=== PATIENT | female | born 1955 | race Caucasian/White ===

== ENCOUNTER 2017-08-31 05:03 | Inpatient (IN) | payer OTHER ==
[~2017-08-31] VITALS: Ht 154.9 cm; Wt 72.9 kg
[~2017-08-31 05:03] MED LIST: SYNT25TA
[2017-08-31 05:08] VITALS: BP 132/75; PULSE 77; RESP 16; TEMP 97.9; O2SAT 97
[2017-08-31 05:19] VITALS: BP_SYST 130; BP_SYST 132; BP_DIAS 72; BP_DIAS 75; RESP 16
[2017-08-31] MEDS ORDERED: LIPI10TA PO (05:22)
[2017-08-31] MEDS ORDERED: SYNT25TA PO (05:22)
[2017-08-31] MEDS ORDERED: ASPI-183 PO (05:26)
[2017-08-31] MEDS ORDERED: SODIUM CHLOR 0.9% 1000 ML INJ 1,000 ML IV SCH (05:30)
[2017-08-31] MEDS ORDERED: SODIUM CHLORID 0.9% 500 ML INJ 500 ML IV ONE (05:30)
[2017-08-31] MEDS ORDERED: ONDANSETRON HCL 4 MG/2 ML VIAL IVP ONE (05:30)
[2017-08-31] MEDS ORDERED: SODIUM CHLORIDE 0.9% FLUSH 10 ML FLUSH IVF PRN (05:30)
[2017-08-31] MEDS ORDERED: PANTOPRAZOLE INJ 80 MG in SODIUM CHLORIDE 0.9% INJ 35 ML IV ONE (05:30)
--- NOTE | 2017-08-31 05:38 | PD ---
HPI Chief Complaint: GI Complaint Time Seen by Provider: 05:30 Travel History International Travel<30 days: No Contact w/Intl Traveler<30days: No Traveled to known affect area: No History of Present Illness HPI 61-year-old female presents to the emergency department by EMS transport for near syncope. Patient states that 7 PM last evening she was lightheaded and felt like she might faint went home and went to bed and awakened around 5 this morning to go to the bathroom and was very lightheaded and noticed dark stool 2. Patient has had upper GI bleed secondary to peptic ulcer disease in the past. Patient has had upper endoscopy and colonoscopy in the past. Patient is followed by Dr. Littlejohn. Patient denies chest pain shortness of breath abdominal pain pain. Patient states she has chronic anemia and has had hysterectomy in the past. Patient denies other concerns or complaints. Patient had no injury or fall. Patient does take a daily aspirin but takes no other blood thinning agents. PFSH Past Medical History Narrative Medical Hypertension, anemia, dyslipidemia, GI bleed, hysterectomy, upper endoscopy colonoscopy; no tobacco use; nursing notes reviewed Anemia: Yes Blood Disorders: No Cancer: No Cardiovascular Problems: No Chemotherapy: No Diminished Hearing: No Endocrine: Yes Hypertension: Yes Immune Disorder: No Musculoskeletal: No Neurologic: No Psychiatric: No Reproductive: No Respiratory: No Radiation Therapy: No Thyroid Disease: Yes Past Surgical History Genitourinary Surgery: Yes (BLADDER LIFT 2003) Gynecologic Surgery: Yes (HYST 2000) Hysterectomy: Yes Other Surgery: Yes Social History Alcohol Use: No Tobacco Use: No Substance Use: No Allergies-Medications (Allergen,Severity, Reaction): Coded Allergies: No Known Allergies (Verified Adverse Reaction, Unknown, 08/31/17) Reported Meds & Prescriptions Reported Meds & Active Scripts Active Reported Aspirin 325 Mg Tab 325 Mg PO Lipitor (Atorvastatin Calcium) 10 Mg Tab 10 Mg PO HS Synthroid (Levothyroxine Sodium) 25 Mcg Tab 25 Mcg PO DAILY Review of Systems Except as stated in HPI: all other systems reviewed are Neg Physical Exam Narrative GENERAL: Well-developed well-nourished elderly female in no acute distress or respiratory SKIN: Warm and dry. HEAD: Normocephalic. EYES: No scleral icterus. No injection or drainage. NECK: Supple, trachea midline. No JVD or lymphadenopathy. CARDIOVASCULAR: Regular rate and rhythm without murmurs, gallops, or rubs. RESPIRATORY: Breath sounds equal bilaterally. No accessory muscle use. GASTROINTESTINAL: Abdomen soft, non-tender, nondistended. Rectal exam: Fissure no prolapsed hemorrhoids no mass in the rectal vault; dark maroon blood on exam glove MUSCULOSKELETAL: No cyanosis, or edema. BACK: Nontender without obvious deformity. No CVA tenderness. Data Data Last Documented VS Vital Signs Date Time Temp Pulse Resp B/P (MAP) Pulse Ox O2 Delivery O2 Flow Rate FiO2 08/31/17 05:19 70 16 132/75 (94) 69 16 130/72 (91) 08/31/17 05:08 97.9 97 Orders Orders Bedside Glucose JOE.CSUGAR (08/31/17 05:20) Complete Blood Count With Diff (08/31/17 05:20) Basic Metabolic Panel (Bmp) (08/31/17 05:20) Prothrombin Time / Inr (Pt) (08/31/17 05:20) Act Partial Throm Time (Ptt) (08/31/17 05:20) Type And Screen (08/31/17 05:20) Electrocardiogram (08/31/17 ) Iv Access Insert/Monitor (08/31/17 05:20) Ecg Monitoring (08/31/17 05:20) Orthostatic Vital Signs (08/31/17 05:20) Oximetry (08/31/17 05:30) Ondansetron Inj (Zofran Inj) (08/31/17 05:30) Sodium Chlor 0.9% 1000 Ml Inj (Ns 1000 M (08/31/17 05:30) Sodium Chloride 0.9% Flush (Ns Flush) (08/31/17 05:30) Sodium Chloride 0.9... W/Pantoprazole In (08/31/17 05:30) Sodium Chloride 0.9... W/Pantoprazole In (08/31/17 05:30) Sodium Chlorid 0.9% 500 Ml Inj (Ns 500 M (08/31/17 05:30) MDM Medical Decision Making Medical Screen Exam Complete: Yes Emergency Medical Condition: Yes Medical Record Reviewed: Yes Interpretation(s) EKG normal sinus rhythm rate 75 nonspecific T-wave changes no acute ST elevation or injury pattern changes noted Differential Diagnosis Upper GI bleed, peptic ulcer disease, lower GI bleed, diverticulosis, colitis, anemia Narrative Course IV access obtained specimens collected and sent for resulting type and screen obtained orthostatics patient became symptomatic therefore discontinued patient will be started on Protonix bolus with Protonix infusion Physician Communication Physician Communication admit to [facility] service Diagnosis Primary Impression: Upper GI bleed Admitting Information Admitting Physician Requests: Admit Chelsy Beckett MD Aug 31, 2017 05:38
[2017-08-31 05:42] LABS: AUTOMATED NEUTROPHIL # 9.7 TH/MM3 (1.8-7.7); BASOPHIL # 0.3 TH/MM3 (0-0.2); BASOPHIL % 2.5 % (0.0-2.0); EOSINOPHIL # 0.1 TH/MM3 (0-0.4); EOSINOPHIL % 1.2 % (0.0-4.0); HEMATOCRIT 30.9 % (35.0-46.0); HEMOGLOBIN 10.7 GM/DL (11.6-15.3); LYMPH % 13.1 % (9.0-44.0); LYMPHOCYTE # 1.6 TH/MM3 (1.0-4.8); MEAN CELL VOLUME 89.1 FL (80.0-100.0); MEAN CORPUSCULAR HEMOGLOBIN 30.8 PG (27.0-34.0); MEAN CORPUSCULAR HGB CONC 34.6 % (32.0-36.0); MEAN PLATELET VOLUME 10.2 FL (7.0-11.0); MONO % 4.3 % (0.0-8.0); MONOCYTE # 0.5 TH/MM3 (0-0.9); NEUT % 78.9 % (16.0-70.0); PLATELET COUNT 217 TH/MM3 (150-450); RED BLOOD COUNT 3.46 MIL/MM3 (4.00-5.30); RED CELL DISTRIBUTION WIDTH 12.9 % (11.6-17.2); WHITE BLOOD COUNT 12.2 TH/MM3 (4.0-11.0)
[2017-08-31 05:50] LABS: BICARBONATE 24.4 MEQ/L (21.0-32.0); CALCIUM 8.3 MG/DL (8.5-10.1); CREATININE 0.66 MG/DL (0.50-1.00)
[2017-08-31] MEDS ORDERED: ONDANSETRON HCL 4 MG/2 ML VIAL IV PUSH PRN (06:00)
[2017-08-31] MEDS ORDERED: SODIUM CHLORIDE 0.9% FLUSH 10 ML FLUSH IV FLUSH PRN (06:00)
[2017-08-31] MEDS: SODIUM CHLOR 0.9% 1000 ML INJ 1,000 ML IV SCH ×2 (06:06→13:49)
[2017-08-31] MEDS: PANTOPRAZOLE INJ 80 MG in SODIUM CHLORIDE 0.9% INJ 100 ML IV SCH ×2 (06:11→13:49)
[2017-08-31] MEDS: SODIUM CHLORIDE 0.9% FLUSH 10 ML FLUSH IV FLUSH SCH ×2 (07:40→21:00)
[2017-08-31 08:00] VITALS: BP 106/59; PULSE 68; RESP 17; TEMP 96.5; O2SAT 96
[2017-08-31] MEDS ORDERED: SODIUM CHLORID 0.9% 500 ML INJ 500 ML IV SCH (08:30)
--- NOTE | 2017-08-31 08:56 | HHI.HP ---
[facility] Jorgito Farr M.D. Admission Diagnosis upper gi bleed Diagnoses: (1) Hypertension (2) Hyperlipidemia (3) Hypothyroidism (4) Hypotension (5) Acute blood loss anemia (6) Upper GI bleed Chief Complaint: Lightheadedness Travel History International Travel<30 Days: No Contact w/Intl Traveler <30 Da: No Traveled to Known Affected Are: No History of Present Illness The patient is a 61-year-old female who states that she was in her normal state of health until yesterday evening when she began to feel lightheaded and dizzy. She felt that she was going to pass out. She denies syncope/loss of consciousness. She had 2 very dark stools overnight. She has history of GI bleed secondary to ulcer about 8 years ago. She takes a daily aspirin, but no other NSAIDs. Denies nausea or vomiting. Review of Systems Constitutional: COMPLAINS OF: Dizziness, DENIES: Fever, Chills, Night Sweats Eyes: DENIES: Blurred vision, Vision loss Ears, nose, mouth, throat: DENIES: Hearing loss Respiratory: DENIES: Cough, Wheezing, Sputum production, Shortness of breath Cardiovascular: DENIES: Chest pain, Palpitations, Syncope, Dyspnea on Exertion , Lower Extremity Edema Gastrointestinal: COMPLAINS OF: Black stools, DENIES: Abdominal pain, Constipation, Diarrhea, Nausea, Vomiting Genitourinary: DENIES: Urinary frequency, Urinary incontinence, Urgency, Hematuria, Dysuria, Nocturia Musculoskeletal: DENIES: Joint pain, Muscle aches Integumentary: DENIES: Pruritus, Rash Hematologic/lymphatic: DENIES: Bruising Neurologic: DENIES: Headache Past Family Social History Past Medical History Hypertension Hyperlipidemia Hypothyroidism History of GI bleed secondary to ulcer Past Surgical History Hysterectomy Bladder lift Reported Medications Aspirin 325 Mg Tab 325 Mg PO Lipitor (Atorvastatin Calcium) 10 Mg Tab 10 Mg PO HS Synthroid (Levothyroxine Sodium) 25 Mcg Tab 25 Mcg PO DAILY Lisinopril 5 mg daily Allergies: Coded Allergies: No Known Allergies (Verified Allergy, Unknown, 08/31/17) Family History Diabetes Social History Denies alcohol, tobacco, or illicit drug use. Physical Exam Vital Signs Vital Signs Date Time Temp Pulse Resp B/P (MAP) Pulse Ox O2 Delivery O2 Flow Rate FiO2 08/31/17 06:29 08/31/17 05:19 70 16 132/75 (94) 69 16 130/72 (91) 08/31/17 05:16 16 08/31/17 05:08 97.9 77 16 132/75 (94) 97 Physical Exam GENERAL: Well-nourished, well-developed female in no acute distress. HEENT: Normocephalic, atraumatic. Pupils equal, round and reactive. Extraocular movements intact. No scleral icterus. No injection or drainage. Oropharynx is clear. Mucous membranes are moist. CARDIOVASCULAR: Regular rate and rhythm without murmurs, gallops, or rubs. RESPIRATORY: Clear to auscultation. No wheezes, rales, or rhonchi. Breathing is non-labored. GASTROINTESTINAL: Abdomen soft, non-tender, nondistended. EXTREMITIES: No lower extremity edema. No calf tenderness. PSYCH: Alert and oriented x 3. Laboratory Laboratory Tests Test 08/31/17 05:20 White Blood Count 12.2 Red Blood Count 3.46 Hemoglobin 10.7 Hematocrit 30.9 Mean Corpuscular Volume 89.1 Mean Corpuscular Hemoglobin 30.8 Mean Corpuscular Hemoglobin Concent 34.6 Red Cell Distribution Width 12.9 Platelet Count 217 Mean Platelet Volume 10.2 Neutrophils (%) (Auto) 78.9 Lymphocytes (%) (Auto) 13.1 Monocytes (%) (Auto) 4.3 Eosinophils (%) (Auto) 1.2 Basophils (%) (Auto) 2.5 Neutrophils # (Auto) 9.7 Lymphocytes # (Auto) 1.6 Monocytes # (Auto) 0.5 Eosinophils # (Auto) 0.1 Basophils # (Auto) 0.3 CBC Comment DIFF FINAL Differential Comment Blood Urea Nitrogen 32 Creatinine 0.66 Random Glucose 152 Calcium Level 8.3 Sodium Level 139 Potassium Level 4.0 Chloride Level 108 Carbon Dioxide Level 24.4 Anion Gap 7 Estimat Glomerular Filtration Rate 91 Result Diagram: 08/31/1751908/31/1720 Caprini VTE Risk Assessment Caprini VTE Risk Assessment: No/Low Risk (score <= 1) VTE Pharm Contraindication: Active bleeding Caprini Risk Assessment Model Point Value = 1 Point Value = 2 Point Value = 3 Point Value = 5 Age 41-60 Minor surgery BMI > 25 kg/m2 Swollen legs Varicose veins or History of unexplained or recurrent spontaneous Oral contraceptives or hormone replacement Sepsis (< 1 month) Serious lung disease, including pneumonia (< 1 month) Abnormal pulmonary function Acute myocardial infarction Congestive heart failure (< 1 month) History of inflammatory bowel disease Medical patient at bed rest Age 61-74 Arthroscopic surgery Major open surgery (> 45 min) Laparoscopic surgery (> 45 min) Malignancy Confined to bed (> 72 hours) Immobilizing plaster cast Central venous access Age >= 75 History of VTE Family history of VTE Factor V Leiden Prothrombin [id number] Lupus anticoagulant Anticardiolipin antibodies Elevated serum homocysteine Heparin-induced thrombocytopenia Other congenital or acquired thrombophilia Stroke (< 1 month) Elective arthroplasty Hip, pelvis, or leg fracture Acute spinal cord injury (< 1 month) Prophylaxis Regimen Total Risk Factor Score Risk Level Prophylaxis Regimen 0-1 Low Early ambulation 2 Moderate Order ONE of the following: *Sequential Compression Device (SCD) *Heparin 5000 units SQ BID 3-4 Higher Order ONE of the following medications: *Heparin 5000 units SQ TID *Enoxaparin/Lovenox 40 mg SQ daily (WT < 150 kg, CrCl > 30 mL/min) *Enoxaparin/Lovenox 30 mg SQ daily (WT < 150 kg, CrCl > 10-29 mL/min) *Enoxaparin/Lovenox 30 mg SQ BID (WT < 150 kg, CrCl > 30 mL/min) AND/OR *Sequential Compression Device (SCD) 5 or more Highest Order ONE of the following medications: *Heparin 5000 units SQ TID (Preferred with Epidurals) *Enoxaparin/Lovenox 40 mg SQ daily (WT < 150 kg, CrCl > 30 mL/min) *Enoxaparin/Lovenox 30 mg SQ daily (WT < 150 kg, CrCl > 10-29 mL/min) *Enoxaparin/Lovenox 30 mg SQ BID (WT < 150 kg, CrCl > 30 mL/min) AND *Sequential Compression Device (SCD) Assessment and Plan Assessment and Plan 1. Acute upper GI bleed: Monitor H&H closely. Transfuse if necessary. Patient becomes lightheaded whenever she tries to stand up. Fluid bolus given this morning. Appreciate gastroenterology recommendations. Discussed with Dr. Oscar. Planning for endoscopy this afternoon. Aspirin on hold. 2. Hypotension: Patient has history of hypertension. Lisinopril on hold secondary to low blood pressure. Fluid bolus given. 3. Hyperlipidemia: Statin on hold. 4. Hypothyroidism: Continue Synthroid. 5. DVT prophylaxis: SCDs, HARINDER becker. Avoid chemical prophylaxis secondary to active GI bleed. Enrique Nelson MD Aug 31, 2017 08:56
[2017-08-31] MEDS: LEVOTHYROXINE SODIUM 25 MCG TAB PO SCH (09:07)
--- NOTE | 2017-08-31 09:40 | MB ---
cc: MICAELA FUENTES DONATO R. M.D. PASRICHA, SUNIL P. M.D. DATE OF CONSULTATION: 08/31/2017 DATE OF 1955 REASON FOR GI CONSULTATION Melena and anemia. HISTORY OF PRESENT ILLNESS The patient is a pleasant 61-year-old white female who apparently has had an ulcer in the past. At one point she was H. Pylori positive and she was treated. She was seen last in our office in [address] Millan did upper endoscopy on her and found erosive gastritis and duodenitis and colonoscopy done in 2013 also showed diverticulosis. The patient does take aspirin daily but no NSAIDs and yesterday she felt lightheaded and dizzy and had black stools, and she came to the emergency room. Since being in the hospital she has not had anymore black stools but this morning she got up and she very lightheaded. She denies any nausea, vomiting, heart issues. No dysphagia. No aphasia or early satiety. No abdominal pain. No hematochezia or bright red blood per rectum. She does have a history of anemia. PAST MEDICAL HISTORY Significant for: 1. Peptic ulcer. 2. Gastric erosion. 3. Duodenitis. 4. Colonic diverticulosis. 5. Hypertension. 6. Anemia. 7. Dyslipidemia. 8. She also has some form of thyroid disease. PAST SURGICAL HISTORY 1. Bladder lift. 2. Hysterectomy. 3. Upper endoscopy, colonoscopy. ALLERGIES She denies any allergies to me. FAMILY HISTORY Family history of colon polyps. SOCIAL HISTORY Does not smoke or drink. MEDICATION Outpatient: 1. Aspirin. 2. Lipitor. 3. Synthroid. Inpatient: She has been getting she is getting pantoprazole drip and Zofran. PHYSICAL EXAMINATION VITAL SIGNS: Blood pressure is 132/75, pulse of 70, respirations 16, temperature 97.9. GENERAL: In general she is a pale-appearing white female, somewhat overweight. She appears in no acute GI distress at present. HEENT: Her pupils are equal, round, reactive to light. No obvious scleral icterus. Oropharyngeal cavity had dental caries. No brea lesions. Hearing was intact. There is no blood in her mouth. LUNGS: Clear to auscultation and percussion. NECK: Supple without thyromegaly or lymphadenopathy. HEART: Regular rate and rhythm. No gross murmurs are heard. ABDOMEN: Soft, nondistended, nontender. No organomegaly or masses. No ascites or hernias. Bowel sounds are positive all four quadrants. RECTAL: I did not repeat a rectal exam on her but the ER doctor had noted darkish-maroon stool. EXTREMITIES: No cyanosis, clubbing or edema. Cranial nerves II-XII are grossly intact. No gross sensory deficits. Skin is warm, moist. She is alert and oriented x 3. DATABASE Her laboratories this morning reveal white blood cell count of 12,200, hemoglobin 2.7, hematocrit of 30.9, MCV of 89.1, platelet count 219,000. Her BUN is 32, is elevated, creatinine 0.66, potassium 4.0. Sodium 139. Protime INR and PTT are pending. Repeat CBC apparently has been ordered and is pending. IMPRESSION 1. Melena - the family showed me a picture of what she had in the toilet and it was black stool. ER reported dark-maroon stools. Either way, I suspect she has an upper GI bleed based on elevated BUN relative to creatinine. She does take aspirin, has a history of ulcer in the past. We also talked about AVMs, malignancies, right colonic lesions, etc. We need to find the source of bleeding. 2. Anemia - more likely acute blood loss anemia, although she may have had anemia in the past also. 3. History colonic diverticulosis. Her last colonoscopy was in 2013. 4. History of gastric erosions and duodenitis. RECOMMENDATIONS 1. Continue PPI. 2. Transfuse as needed based on her symptomatology, blood pressure, continued GI bleeding and hemoglobin. 3. Upper endoscopy, hopefully today. All indications, risks, complications, benefits were all discussed with her including risk of bleeding, infection, perforation arrhythmia, and a small possibility of . 4. Further recommendations after the upper endoscopy is done. Jonathon Oscar MD SP/THAISL /8:25 AM 8:47 AM TREVIN
[2017-08-31 12:00] VITALS: BP 92/52; PULSE 88; RESP 17; TEMP 97.8; O2SAT 98
[2017-08-31] MEDS ORDERED: PROPOFOL 200 MG/20 ML AMP IV ONE (12:00)
[2017-08-31] MEDS ORDERED: LIDOCAINE HCL 1% PF 5 ML SYRINGE OTHER ONE (12:00)
[2017-08-31 14:14] LABS: INTERNATIONAL NORMALIZED RATIO 1.1 RATIO; PROTHROMBIN TIME - PATIENT 11.6 SEC (9.8-11.6)
[2017-08-31] MEDS ORDERED: LACTATED RINGER'S 1000 ML IV PRN (15:45)
[2017-08-31] MEDS ORDERED: CHLORHEXIDINE GLUCONATE 2 % 1 PACK (2 CLOTHS) TOPICAL PRN (15:45)
[2017-08-31] MEDS ORDERED: POVIDONE IODINE 5% (ANTISEPSIS KIT) 4 APPLICATIONS EACH NARE PRN (15:45)
[2017-08-31] MEDS ORDERED: SODIUM CHLORID 0.9% 500 ML IV PRN (15:45)
[2017-08-31] MEDS ORDERED: METOPROLOL TARTRATE 25 MG TAB PO PRN (15:45)
--- NOTE | 2017-08-31 16:32 | GIPROC ---
[facility] [address] [facility]. [facility], [id number] EGD PROCEDURE REPORT EXAM DATE: 08/31/2017 PATIENT NAME: Dorota Garcias MR #: [id number] BIRTHDATE: 1955 ATTENDING: Jonathon Oscar MD ORDER #: [id number] MAIL PROCESSING MACHINE OPERATOR: Crow Echevarria and Ayla Cardozo STATUS: inpatient INDICATIONS: The patient is a 61 yr old female here for an EGD due to acute post hemorrhagic anemia and melena PROCEDURE PERFORMED: EGD w/ biopsy EGD w/ control of bleeding MEDICATIONS: None and Per Anesthesia. TOPICAL ANESTHETIC: none CONSENT: The patient understands the risks and benefits of the procedure and understands that these risks include, but are not limited to: sedation, allergic reaction, infection, perforation and/or bleeding. Alternative means of evaluation and treatment include, among others: physical exam, x-rays, and/or surgical intervention. The patient elects to proceed with this endoscopic procedure. medical equipment was checked for proper function. Hand hygiene and appropriate measures for infection prevention was taken. After the risks, benefits and alternatives of the procedure were thoroughly explained, Informed consent was verified, confirmed and timeout was successfully executed by the treatment team. The patient was anesthetized with topical anesthesia and the Pentax EG-[id number] endoscope was introduced through the mouth and advanced to the second portion of the duodenum. Retroflexion was performed and was normal The gastroscope was then slowly withdrawn and removed. ESOPHAGUS: The GE Junction was located 36cm from the incisors. The GEJ appeared normal. STOMACH: Multiple ranging between 5-9mm in size non-bleeding, irregular shaped, shallow and clean-based ulcers were found in the gastric antrum. Biopsies were taken. DUODENUM: A single bleeding and shallow ulcer ranging between 3-5 mm in size with a visible vessel and active oozing of blood was found in the duodenal bulb. Partial hemostasis was achieved by placing three hemoclips on the bleeding site(s). Cautery was applied to the site using 10 cooley power. With complete hemostasis achieved. ADVERSE EVENTS: There were no complications. IMPRESSIONS: 1. The GE Junction was located 36cm from the incisors 2. Multiple ranging between 5-9mm in size ulcers were found in the gastric antrum; biopsies were taken 3. Single ulcer ranging between 3-5 mm in size was found in the duodenal bulb; Partial hemostasis was achieved by placing three hemoclips on the bleeding site(s); cautery was applied to the site; with complete hemostasis achieved 4. Retroflexion was performed and was normal RECOMMENDATIONS: 1. Await biopsy results. Biopsy results will not be ready for 7-10 days. If you don't hear from us in two weeks, call our office for biopsy results. 2. Continue PPI PATIENT CONDITION: stable DISPOSITION: Inpatient REPEAT EXAM: Return 2 months EGD Jonathon Oscar MD eSigned: Jonathon Oscar MD 08/31/2017 4:32 PM cc: PATIENT NAME: Dorota Garcias MR#: [id number]
[2017-08-31 17:20] VITALS: BP 108/67; PULSE 81; RESP 17; TEMP 97.9; O2SAT 98
[2017-08-31] MEDS ORDERED: ACETAMINOPHEN 325 MG TAB PO ONE (18:45)
[2017-08-31 18:59] LABS: HEMATOCRIT 21.4 % (35.0-46.0); HEMOGLOBIN 7.2 GM/DL (11.6-15.3)
[2017-08-31 20:20] VITALS: BP 120/59; PULSE 82; RESP 18; TEMP 97.1; O2SAT 97
--- NOTE | 2017-08-31 20:25 | EKG ---
Date Performed: 08/31/2017 Time Performed: 05:24:02 PTAGE: 61 years EKG: Sinus rhythm NONSPECIFIC T-WAVE ABNORMALITY BORDERLINE ECG Since the prior tracing, there has been no significant change PREVIOUS TRACING : 03/28/2009 09.39 DOCTOR: Rommel Chatterjee Interpretating Date/Time 08/31/2017 20:20:20
[2017-09-01] VITALS (13 sets, daily range): BP systolic 104–138; BP diastolic 56–74; PULSE 72–84; RESP 16–18; TEMP 97–98.3; O2SAT 97–99
[2017-09-01 00:47] LABS: HEMATOCRIT 18.7 % (35.0-46.0); HEMOGLOBIN 6.4 GM/DL (11.6-15.3)
[2017-09-01] MEDS ORDERED: SODIUM CHLOR 0.9% 250 ML INJ 250 ML IV ONE (01:00)
[2017-09-01] MEDS: SODIUM CHLOR 0.9% 1000 ML INJ 1,000 ML IV SCH ×3 (01:54→21:28)
[2017-09-01] MEDS: PANTOPRAZOLE INJ 80 MG in SODIUM CHLORIDE 0.9% INJ 100 ML IV SCH ×3 (02:36→20:34)
[2017-09-01] MEDS: LEVOTHYROXINE SODIUM 25 MCG TAB PO SCH (06:00)
[2017-09-01] MEDS: SODIUM CHLORIDE 0.9% FLUSH 10 ML FLUSH IV FLUSH SCH ×2 (09:00→20:34)
--- NOTE | 2017-09-01 09:52 | HHI.GIFU ---
GI Follow-up Note Consult Follow-up Subjective: small black stool last pm. no bleeding this am. no n,v,abd pain. Objective: PHYSICAL EXAMINATION: Vitals signs stable No fever NECK: Neck is supple, no JVD, no lymphadenopathy. CHEST: Chest is clear to auscultation and percussion. CARDIAC: Regular rate and rhythm with no murmur gallop or rubs. ABDOMEN: Soft, nondistended, nontender; no hepatosplenomegaly; bowel sounds are present in all four quadrants. EXTREMITIES: No edema. SKIN: no jaundice. MATERIAL MANAGER: No focal deficits; alert and oriented times three. Available Data (labs, X- Rays, Procedues) : hgb 6.4-getting blood ASSESSMENT/PLAN: 1. Melena 2. Anemia 3. Gastric ulcers-bx pending 4. Bleeding DU-clipped and cauterized PLAN: 1. PPI 2. clears ok 3. If signs of active bleeding will need IR (or surgery) It was a pleasure seeing Dorota Garcias. Thank you for this consult. Entered by: Jonathon Ortez MD Sep 01, 2017 09:52
--- NOTE | 2017-09-01 10:16 | HHI.PR ---
Subjective Remarks Follow up GI bleed, anemia. Patient reporting headache. No nausea/vomiting. No abdominal pain. Objective Vitals Vital Signs Date Time Temp Pulse Resp B/P (MAP) Pulse Ox O2 Delivery O2 Flow Rate FiO2 09/01/17 07:54 97.9 81 18 113/67 (82) 97 09/01/17 05:46 98.0 81 17 114/65 97 09/01/17 05:08 97.0 84 18 106/57 (73) 97 09/01/17 03:43 97.5 83 16 117/60 09/01/17 03:25 98.1 80 16 119/66 98 09/01/17 00:20 97.4 75 17 104/56 (72) 99 08/31/17 20:20 97.1 82 18 120/59 (79) 97 08/31/17 17:20 97.9 81 17 108/67 (81) 98 08/31/17 12:00 97.8 88 17 92/52 (65) 98 I/O 08/31/17 08/31/17 08/31/17 09/01/17 09/01/17 09/01/17 07:00 15:00 23:00 07:00 15:00 23:00 Intake Total 0 ml 600 ml 420 ml Balance 0 ml 600 ml 420 ml Intake Oral 0 ml 0 ml 0 ml Packed Cells 400 ml Blood Product IV Normal Saline Flush 20 ml Other 600 ml # Voids 4 2 2 # Bowel Movements 0 0 0 Result Diagram: 09/01/17 0009 08/31/17 0520 Objective Remarks General: No acute distress. Heart: Regular rate and rhythm. No murmur. Lungs: Clear to auscultation bilaterally. No wheezes, rales, or rhonchi. Breathing is nonlabored. Abdomen: Soft, nontender, nondistended. Extremities: No lower extremity edema. Psych: Alert and oriented. Procedures 08/31/17 EGD Urinary Catheter: No Vascular Central Line Catheter: No A/P Problem List: (1) Hypertension ICD Code: I10 - Essential (primary) hypertension (2) Hyperlipidemia ICD Code: E78.5 - Hyperlipidemia, unspecified (3) Hypothyroidism ICD Code: E03.9 - Hypothyroidism, unspecified (4) Hypotension ICD Code: I95.9 - Hypotension, unspecified (5) Acute blood loss anemia ICD Code: D62 - Acute posthemorrhagic anemia (6) Upper GI bleed ICD Code: K92.2 - Gastrointestinal hemorrhage, unspecified Status: Acute Assessment and Plan 1. Acute upper GI bleed: Hemoglobin decreased significantly. Transfuse 2 units PRBCs today. Patient becomes lightheaded whenever she tries to stand up. Appreciate gastroenterology recommendations. Status post EGD. Multiple ulcers found. Continue PPI. Aspirin on hold. 2. Hypotension: Patient has history of hypertension. Lisinopril on hold secondary to low blood pressure. 3. Hyperlipidemia: Statin on hold. 4. Hypothyroidism: Continue Synthroid. 5. DVT prophylaxis: HARINDER Acevedo. Avoid chemical prophylaxis secondary to active GI bleed. Enrique Nelson MD Sep 01, 2017 10:16
[2017-09-01] MEDS: ACETAMINOPHEN 500 MG CPLT PO PRN (10:38)
[2017-09-01 16:12] LABS: BASOPHIL # 0.1 TH/MM3 (0-0.2); BASOPHIL % 0.5 % (0.0-2.0); EOSINOPHIL # 0.1 TH/MM3 (0-0.4); HEMATOCRIT 27.4 % (35.0-46.0); HEMOGLOBIN 9.5 GM/DL (11.6-15.3); LYMPH % 26.4 % (9.0-44.0); LYMPHOCYTE # 2.8 TH/MM3 (1.0-4.8); MEAN CELL VOLUME 83.6 FL (80.0-100.0); MEAN CORPUSCULAR HGB CONC 34.6 % (32.0-36.0); MEAN PLATELET VOLUME 9.7 FL (7.0-11.0); MONO % 5.3 % (0.0-8.0); MONOCYTE # 0.6 TH/MM3 (0-0.9); NEUT % 66.8 % (16.0-70.0); PLATELET COUNT 152 TH/MM3 (150-450); RED BLOOD COUNT 3.28 MIL/MM3 (4.00-5.30); RED CELL DISTRIBUTION WIDTH 19.5 % (11.6-17.2); WHITE BLOOD COUNT 10.5 TH/MM3 (4.0-11.0)
[2017-09-01 16:34] LABS: ALBUMIN 2.6 GM/DL (3.4-5.0); AST (GOT) 12 U/L (15-37); BICARBONATE 24.1 MEQ/L (21.0-32.0); BLOOD UREA NITROGEN 22 MG/DL (7-18); CALCIUM 7.5 MG/DL (8.5-10.1); CHLORIDE 110 MEQ/L (98-107); CREATININE 0.58 MG/DL (0.50-1.00); GLOMERULAR FILTRATION RATE 105 ML/MIN (>89); GLUCOSE,RANDOM 101 MG/DL (74-106); SODIUM (NA) 143 MEQ/L (136-145)
[2017-09-01 16:40] LABS: ALKALINE PHOSPHATASE 46 U/L (45-117); ALT (GPT) 13 U/L (10-53); TOTAL BILIRUBIN ADULT 0.5 MG/DL (0.2-1.0); TOTAL PROTEIN 4.9 GM/DL (6.4-8.2)
[2017-09-01] MEDS ORDERED: diphenhydrAMINE HCL 50 MG CAP PO ONE (21:15)
[2017-09-01 22:09] LABS: HEMATOCRIT 24.4 % (35.0-46.0); HEMOGLOBIN 8.4 GM/DL (11.6-15.3)
[2017-09-02] VITALS (11 sets, daily range): BP systolic 86–139; BP diastolic 41–77; PULSE 56–80; RESP 16–18; TEMP 97.1–97.8; O2SAT 96–98
[2017-09-02 02:20] LABS: HEMATOCRIT 22.5 % (35.0-46.0); HEMOGLOBIN 7.8 GM/DL (11.6-15.3)
[2017-09-02] MEDS: PANTOPRAZOLE INJ 80 MG in SODIUM CHLORIDE 0.9% INJ 100 ML IV SCH (06:18)
[2017-09-02] MEDS: LEVOTHYROXINE SODIUM 25 MCG TAB PO SCH (06:18)
--- NOTE | 2017-09-02 08:38 | HHI.PR ---
Subjective Remarks Follow up GI bleed, anemia. Patient states that she feels better today. Denies nausea, vomiting, abdominal pain, dyspnea, chest pain. Has continued to have some dark stools, but they seem to be improving. Objective Vitals Vital Signs Date Time Temp Pulse Resp B/P (MAP) Pulse Ox O2 Delivery O2 Flow Rate FiO2 09/02/17 07:54 97.4 68 16 136/54 (81) 98 09/02/17 04:15 97.1 72 17 128/64 (85) 98 09/02/17 00:15 97.8 80 17 125/69 (87) 96 09/01/17 21:41 73 09/01/17 20:15 97.9 75 17 131/74 (93) 97 09/01/17 17:53 98 21 09/01/17 15:59 97.9 72 18 138/67 (90) 98 09/01/17 12:19 16 09/01/17 11:18 98.1 77 16 97 09/01/17 11:16 98.1 77 16 119/63 97 09/01/17 11:01 98.3 78 16 128/65 98 I/O 09/01/17 09/01/17 09/01/17 09/02/17 09/02/17 09/02/17 07:00 15:00 23:00 07:00 15:00 23:00 Intake Total 420 ml 650 ml 460 ml 240 ml Balance 420 ml 650 ml 460 ml 240 ml Intake Oral 0 ml 200 ml 360 ml 240 ml IV Total 100 ml Packed Cells 400 ml 400 ml Blood Product IV Normal Saline Flush 20 ml 50 ml # Voids 2 4 2 2 # Bowel Movements 0 0 0 Result Diagram: 09/02/17 0147 09/01/17 1508 Objective Remarks General: No acute distress. Heart: Regular rate and rhythm. No murmur. Lungs: Clear to auscultation bilaterally. No wheezes, rales, or rhonchi. Breathing is nonlabored. Abdomen: Soft, nontender, nondistended. Extremities: No lower extremity edema. Psych: Alert and oriented. Procedures 08/31/17 EGD Urinary Catheter: No Vascular Central Line Catheter: No A/P Problem List: (1) Hypertension ICD Code: I10 - Essential (primary) hypertension (2) Hyperlipidemia ICD Code: E78.5 - Hyperlipidemia, unspecified (3) Hypothyroidism ICD Code: E03.9 - Hypothyroidism, unspecified (4) Hypotension ICD Code: I95.9 - Hypotension, unspecified (5) Acute blood loss anemia ICD Code: D62 - Acute posthemorrhagic anemia (6) Upper GI bleed ICD Code: K92.2 - Gastrointestinal hemorrhage, unspecified Status: Acute Assessment and Plan 1. Acute upper GI bleed: H&H trending down. Repeat labs are pending. Transfuse if necessary. Patient has received 2 units PRBCs during this hospitalization. Appreciate gastroenterology recommendations. Status post EGD. Multiple ulcers found. Continue PPI. Aspirin on hold. 2. Hypotension: Patient has history of hypertension. Lisinopril on hold secondary to low blood pressure. 3. Hyperlipidemia: Statin on hold. 4. Hypothyroidism: Continue Synthroid. 5. DVT prophylaxis: HARINDER Acevedo. Avoid chemical prophylaxis secondary to active GI bleed. Discharge Planning Pending clinical improvement. Enrique Nelson MD Sep 02, 2017 08:38
[2017-09-02 09:56] LABS: AUTOMATED NEUTROPHIL # 5.5 TH/MM3 (1.8-7.7); BASOPHIL # 0.1 TH/MM3 (0-0.2); BASOPHIL % 0.6 % (0.0-2.0); EOSINOPHIL # 0.4 TH/MM3 (0-0.4); EOSINOPHIL % 4.1 % (0.0-4.0); HEMATOCRIT 26.2 % (35.0-46.0); LYMPH % 27.3 % (9.0-44.0); LYMPHOCYTE # 2.4 TH/MM3 (1.0-4.8); MEAN CELL VOLUME 83.4 FL (80.0-100.0); MEAN CORPUSCULAR HEMOGLOBIN 28.8 PG (27.0-34.0); MEAN CORPUSCULAR HGB CONC 34.6 % (32.0-36.0); MEAN PLATELET VOLUME 9.4 FL (7.0-11.0); MONO % 5.2 % (0.0-8.0); MONOCYTE # 0.4 TH/MM3 (0-0.9); NEUT % 62.8 % (16.0-70.0); PLATELET COUNT 167 TH/MM3 (150-450); RED BLOOD COUNT 3.14 MIL/MM3 (4.00-5.30); RED CELL DISTRIBUTION WIDTH 19.3 % (11.6-17.2); WHITE BLOOD COUNT 8.7 TH/MM3 (4.0-11.0)
[2017-09-02 10:20] LABS: CALCIUM 7.6 MG/DL (8.5-10.1); CREATININE 0.55 MG/DL (0.50-1.00)
[2017-09-02] MEDS ORDERED: POTASSIUM CHLORIDE 10 MEQ CONTROLLED RELEASE TAB PO ONE (10:45)
[2017-09-02] MEDS: NS + KCL 20 MEQ INJ 1,000 ML IV SCH (11:53)
[2017-09-02] MEDS: SODIUM CHLORIDE 0.9% FLUSH 10 ML FLUSH IV FLUSH SCH ×2 (11:55→19:53)
--- NOTE | 2017-09-02 13:31 | HHI.GIFU ---
GI Follow-up Note Consult Follow-up Subjective: Patient laying in bed comfortably. feeling well. no N/V/Abd pain. stools less black Objective: PHYSICAL EXAMINATION: Vitals signs stable No fever HEENT: no jaundice. Throat is clear. NECK: no lymphadenopathy. CHEST: Chest is clear to auscultation and percussion. CARDIAC: Regular rate and rhythm with no murmur gallop or rubs. ABDOMEN: Soft, nondistended, nontender; no hepatosplenomegaly; bowel sounds are present in all four quadrants. EXTREMITIES: No edema. SKIN: no jaundice. GROCERY SPECIALIST: alert and oriented times three. Available Data (labs, X- Rays, Procedues) : hgb 9.0 ASSESSMENT/PLAN: 1. Melena-prob old blood now 2. Anemia-better 3. Gastric ulcers-bx pending 4. Bleeding DU-clipped and cauterized PLAN: 1. PPI po. add on Carafate 2. advance diet. Hopefully D/C 09/03/17 if no bleeding and hgb stable 3. If signs of active bleeding will need IR (or surgery) It was a pleasure seeing Dorota Garcias. Thank you for this consult. Entered by: Jonathon Ortez MD Sep 02, 2017 13:31
[2017-09-02 16:08] LABS: HEMATOCRIT 22.5 % (35.0-46.0); HEMOGLOBIN 8.2 GM/DL (11.6-15.3)
[2017-09-02] MEDS: SUCRALFATE 1 GM TAB PO SCH ×2 (18:04→19:53)
[2017-09-02] MEDS: PANTOPRAZOLE SOD 40 MG DELAYED RELEASE TAB PO SCH (18:04)
[2017-09-02 22:06] LABS: HEMATOCRIT 23.7 % (35.0-46.0)
[2017-09-02] MEDS ORDERED: SODIUM CHLOR 0.9% 250 ML INJ 250 ML IV ONE (22:15)
[2017-09-02] MEDS ORDERED: ATROPINE SULFATE 1 MG/ML VIAL IV PUSH PRN (22:30)
[2017-09-02] MEDS ORDERED: SODIUM CHLOR 0.9% 1000 ML INJ 1,000 ML IV ONE (22:30)
[2017-09-02 23:46] LABS: AUTOMATED NEUTROPHIL # 8.6 TH/MM3 (1.8-7.7); BASOPHIL # 0.1 TH/MM3 (0-0.2); BASOPHIL % 0.6 % (0.0-2.0); EOSINOPHIL # 0.5 TH/MM3 (0-0.4); EOSINOPHIL % 3.8 % (0.0-4.0); LYMPH % 17.8 % (9.0-44.0); LYMPHOCYTE # 2.1 TH/MM3 (1.0-4.8); MEAN CELL VOLUME 85.2 FL (80.0-100.0); MEAN CORPUSCULAR HEMOGLOBIN 28.5 PG (27.0-34.0); MEAN CORPUSCULAR HGB CONC 33.4 % (32.0-36.0); MEAN PLATELET VOLUME 9.3 FL (7.0-11.0); MONO % 6.6 % (0.0-8.0); MONOCYTE # 0.8 TH/MM3 (0-0.9); NEUT % 71.2 % (16.0-70.0); PLATELET COUNT 156 TH/MM3 (150-450); RED BLOOD COUNT 2.46 MIL/MM3 (4.00-5.30)
[2017-09-02 23:56] LABS: HEMATOCRIT 20.9 % (35.0-46.0)
[2017-09-03] VITALS (13 sets, daily range): BP systolic 110–157; BP diastolic 58–74; PULSE 66–82; RESP 15–25; TEMP 98–98.6; O2SAT 96–98
[2017-09-03 00:21] LABS: ALBUMIN 2.3 GM/DL (3.4-5.0); BICARBONATE 22.6 MEQ/L (21.0-32.0); CALCIUM 6.9 MG/DL (8.5-10.1); CALCIUM-PROTEIN CORRECTED 8.4 MG/DL (8.5-10.1); CREATININE 0.51 MG/DL (0.50-1.00); TOTAL BILIRUBIN ADULT 0.2 MG/DL (0.2-1.0); TOTAL PROTEIN 4.4 GM/DL (6.4-8.2); TROPONIN I 0.08 NG/ML (0.02-0.05)
--- NOTE | 2017-09-03 00:34 | EKG ---
Date Performed: 09/02/2017 Time Performed: 22:37:42 PTAGE: 61 years EKG: Sinus rhythm NORMAL ECG PREVIOUS TRACING : 08/31/2017 05.24 Since the prior tracing, there has been no significant napier DOCTOR: Amrit Rendon Interpretating Date/Time 09/03/2017 00:33:22
[2017-09-03] MEDS: LEVOTHYROXINE SODIUM 25 MCG TAB PO SCH (04:57)
[2017-09-03 07:17] LABS: AUTOMATED NEUTROPHIL # 6.5 TH/MM3 (1.8-7.7); BASOPHIL # 0.1 TH/MM3 (0-0.2); BASOPHIL % 0.5 % (0.0-2.0); EOSINOPHIL # 0.3 TH/MM3 (0-0.4); EOSINOPHIL % 2.6 % (0.0-4.0); HEMATOCRIT 31.5 % (35.0-46.0); HEMOGLOBIN 10.9 GM/DL (11.6-15.3); LYMPH % 24.6 % (9.0-44.0); LYMPHOCYTE # 2.4 TH/MM3 (1.0-4.8); MEAN CELL VOLUME 84.7 FL (80.0-100.0); MEAN CORPUSCULAR HEMOGLOBIN 29.3 PG (27.0-34.0); MEAN CORPUSCULAR HGB CONC 34.7 % (32.0-36.0); MEAN PLATELET VOLUME 9.5 FL (7.0-11.0); MONO % 6.3 % (0.0-8.0); MONOCYTE # 0.6 TH/MM3 (0-0.9); PLATELET COUNT 142 TH/MM3 (150-450); RED BLOOD COUNT 3.72 MIL/MM3 (4.00-5.30); RED CELL DISTRIBUTION WIDTH 16.5 % (11.6-17.2); WHITE BLOOD COUNT 9.9 TH/MM3 (4.0-11.0)
[2017-09-03 07:39] LABS: BICARBONATE 25.1 MEQ/L (21.0-32.0); CALCIUM 7.7 MG/DL (8.5-10.1); CREATININE 0.44 MG/DL (0.50-1.00); MAGNESIUM 1.9 MG/DL (1.5-2.5)
[2017-09-03] MEDS: SUCRALFATE 1 GM TAB PO SCH ×4 (08:31→21:00)
[2017-09-03] MEDS: NS + KCL 20 MEQ INJ 1,000 ML IV SCH ×2 (08:44→08:45)
--- NOTE | 2017-09-03 08:54 | HHI.PR ---
Subjective Remarks Follow up GI bleed, anemia. Patient had hypotension and bradycardia overnight. Was transferred to ICU and given 2 units PRBCs. Now feels much better. No lightheadedness this morning. Objective Vitals Vital Signs Date Time Temp Pulse Resp B/P (MAP) Pulse Ox O2 Delivery O2 Flow Rate FiO2 09/03/17 04:33 98.6 68 16 157/74 98 09/03/17 04:00 98.6 68 16 157/74 (101) 98 09/03/17 02:00 97 21 09/03/17 02:00 98.3 66 16 146/65 97 09/03/17 01:46 98.6 66 15 129/61 97 09/03/17 00:07 98.5 71 18 110/58 96 09/03/17 00:00 98.5 70 20 110/58 (75) 97 09/03/17 00:00 70 09/02/17 22:21 88/52 (64) 09/02/17 22:05 86/42 (57) Automatic Cuff 09/02/17 22:00 56 16 87/41 (56) 97 09/02/17 21:05 67 09/02/17 20:00 97.5 78 17 139/77 (97) 97 09/02/17 16:21 97.3 76 17 121/62 (81) 97 09/02/17 11:53 98 09/02/17 11:39 97.8 75 18 131/65 (87) 97 I/O 09/02/17 09/02/17 09/02/17 09/03/17 09/03/17 09/03/17 07:00 15:00 23:00 07:00 15:00 23:00 Intake Total 240 ml 720 ml 950 ml Output Total 1350 ml Balance 240 ml 720 ml -400 ml Intake Oral 240 ml 720 ml 100 ml Packed Cells 800 ml Blood Product IV Normal Saline Flush 50 ml Output Urine Total 1350 ml # Voids 2 5 4 # Bowel Movements 0 1 1 Result Diagram: 09/03/1760209/03/17602 Objective Remarks General: No acute distress. Sitting up in a chair. Heart: Regular rate and rhythm. No murmur. Lungs: Clear to auscultation bilaterally. No wheezes, rales, or rhonchi. Breathing is nonlabored. Abdomen: Soft, nontender, nondistended. Extremities: No lower extremity edema. Psych: Alert and oriented. Procedures 08/31/17 EGD Urinary Catheter: No Vascular Central Line Catheter: No A/P Problem List: (1) Hypertension ICD Code: I10 - Essential (primary) hypertension (2) Hyperlipidemia ICD Code: E78.5 - Hyperlipidemia, unspecified (3) Hypothyroidism ICD Code: E03.9 - Hypothyroidism, unspecified (4) Hypotension ICD Code: I95.9 - Hypotension, unspecified (5) Acute blood loss anemia ICD Code: D62 - Acute posthemorrhagic anemia (6) Upper GI bleed ICD Code: K92.2 - Gastrointestinal hemorrhage, unspecified Status: Acute Assessment and Plan 1. Acute upper GI bleed: H&H improved following transfusion overnight. Patient has received 4 units PRBCs during this hospitalization. Appreciate gastroenterology recommendations. Status post EGD. Multiple ulcers found. Continue PPI. Aspirin on hold. Continues to have melena. Will likely need interventional radiology evaluation. Monitor H/H. 2. Hypotension: Patient has history of hypertension. Lisinopril on hold secondary to low blood pressure. 3. Hyperlipidemia: Statin on hold. 4. Hypothyroidism: Continue Synthroid. 5. DVT prophylaxis: SCDs, HARINDER becker. Avoid chemical prophylaxis secondary to active GI bleed. Discharge Planning Pending clinical improvement. Plan to keep in ICU until evaluated by GI today. If ok with GI, will transfer to med/surg with telemetry. Enrique Nelson MD Sep 03, 2017 08:54
[2017-09-03] MEDS: SODIUM CHLORIDE 0.9% FLUSH 10 ML FLUSH IV FLUSH SCH ×2 (09:00→21:00)
[2017-09-03] MEDS: PANTOPRAZOLE SOD 40 MG DELAYED RELEASE TAB PO SCH (09:00)
[2017-09-03] MEDS ORDERED: NOREPINEPHRINE-DEXTROSE DRIP 250 ML IV ONE ×2 (11:38→11:39)
[2017-09-03 12:09] LABS: HEMATOCRIT 25.6 % (35.0-46.0); HEMOGLOBIN 8.6 GM/DL (11.6-15.3)
--- NOTE | 2017-09-03 13:50 | HHI.GIFU ---
GI Follow-up Note Consult Follow-up Subjective: Patient laying in bed. Events noted--hypotension with black/ burgundy stools. Hgb dropped to 8.6 Objective: PHYSICAL EXAMINATION: Vitals signs stable--now No fever HEENT: Throat is clear. CHEST: Chest is clear to auscultation and percussion. CARDIAC: Regular rate and rhythm with no murmur gallop or rubs. ABDOMEN: Soft, nondistended, nontender; no hepatosplenomegaly; bowel sounds are present in all four quadrants. EXTREMITIES: No clubbing, cyanosis, or edema. SKIN: Normal; no rash; no jaundice. TRANSPLANT NURSE PRACTITIONER: No focal deficits; alert and oriented times three. Available Data (labs, X- Rays, Procedues) : Hgb dropped from 10 to 8.6 this am ASSESSMENT/PLAN: 1. Melena-prob bleeding again 2. Anemia 3. Gastric ulcers with clean bases-bx pending 4. Bleeding DU (distal bulb)-clipped x3 but this just slowed the bleeding. Area was then cauterized and bleeding stopped (until now) PLAN: 1. Cont PPI-restart the drip 2. Pt has failed medical and endoscopic therapies. agree with IR . If this fails she will need surgery. Family/pt/IR are aware 3. Transfuse as needed. D/W RN and primary service It was a pleasure seeing Dorota Garcias. Thank you for this consult. Entered by: Jonathon Ortez MD Sep 03, 2017 13:50
[2017-09-03] MEDS ORDERED: VERAPAMIL HCL 5 MG/2 ML VIAL ONE (16:11)
[2017-09-03] MEDS ORDERED: MIDAZOLAM HCL 2 MG/2 ML VIAL ONE (16:11)
[2017-09-03] MEDS ORDERED: HEPARIN SODIUM - IV 10,000 UNITS/10 ML VIAL ONE (16:12)
--- NOTE | 2017-09-03 17:10 | PD.RAD ---
Post Procedure Progress Note Pre Procedure Diagnosis: (1) Upper GI bleed Post Procedure Diagnosis: (1) Upper GI bleed Procedure Date: Sep 03, 2017 Supervising Radiologist: Patricio Ness Proceduralist/Assist: Cristina Nelson, RT(R), Dann Patton, RT(R) Anesthesia: Conscious Sedation Plan of Activity Patient to Unit: Critical Care Patient Condition: Good Additional Comments: No active bleed. Embolized the GDA with coils and gelfoam. See PACS Report for procedural detail/treatment Patricio Ness MD Sep 03, 2017 17:10
[2017-09-03] MEDS ORDERED: IODIXANOL 320 MG/ML 50 ML VIAL (for RAD SPEC) I-ARTERIAL ONE (17:28)
[2017-09-03] MEDS ORDERED: GELATIN 12 MM/7 MM FOAM I-ARTERIAL ONE (17:28)
[2017-09-03 19:08] LABS: HEMATOCRIT 24.2 % (35.0-46.0); HEMOGLOBIN 8.3 GM/DL (11.6-15.3)
[2017-09-03] MEDS: PANTOPRAZOLE INJ 80 MG in SODIUM CHLORIDE 0.9% INJ 100 ML IV SCH (19:32)
[2017-09-03] MEDS: ACETAMINOPHEN 500 MG CPLT PO PRN (23:10)
[2017-09-03 23:30] LABS: HEMATOCRIT 23.6 % (35.0-46.0)
[2017-09-04] VITALS (12 sets, daily range): BP systolic 122–159; BP diastolic 64–79; PULSE 66–82; RESP 16–30; TEMP 98–98.5; O2SAT 96–100
[2017-09-04] MEDS: NS + KCL 20 MEQ INJ 1,000 ML IV SCH ×3 (02:40→13:12)
[2017-09-04] MEDS: PANTOPRAZOLE INJ 80 MG in SODIUM CHLORIDE 0.9% INJ 100 ML IV SCH ×3 (03:00→13:11)
[2017-09-04] MEDS: LEVOTHYROXINE SODIUM 25 MCG TAB PO SCH (04:57)
[2017-09-04 05:36] LABS: HEMATOCRIT 24.4 % (35.0-46.0); HEMOGLOBIN 8.3 GM/DL (11.6-15.3)
[2017-09-04] MEDS: ACETAMINOPHEN 500 MG CPLT PO PRN (08:09)
[2017-09-04] MEDS: SUCRALFATE 1 GM TAB PO SCH ×3 (08:09→17:00)
[2017-09-04] MEDS: SODIUM CHLORIDE 0.9% FLUSH 10 ML FLUSH IV FLUSH SCH ×2 (08:10→21:00)
--- NOTE | 2017-09-04 09:14 | HHI.PR ---
Subjective Remarks Follow up GI bleed, anemia. Patient did not have any further near-syncopal episodes overnight. No BM overnight either. Does not feel lightheaded this morning. Objective Vitals Vital Signs Date Time Temp Pulse Resp B/P (MAP) Pulse Ox O2 Delivery O2 Flow Rate FiO2 09/04/17 08:00 76 09/04/17 07:00 98 Room Air 09/04/17 06:00 76 09/04/17 04:00 98.2 76 21 137/69 (91) 97 09/04/17 04:00 76 09/04/17 02:00 67 09/04/17 00:00 78 09/04/17 00:00 98.0 78 17 122/64 (83) 96 09/03/17 22:00 80 09/03/17 20:00 68 09/03/17 20:00 97 Room Air 09/03/17 20:00 98.0 82 25 144/64 (90) 97 09/03/17 18:00 68 09/03/17 14:00 98.4 70 20 112/62 (79) 98 09/03/17 14:00 80 09/03/17 12:00 70 09/03/17 10:00 77 I/O 09/03/17 09/03/17 09/03/17 09/04/17 09/04/17 09/04/17 07:00 15:00 23:00 07:00 15:00 23:00 Intake Total 950 ml 240 ml 1100 ml Output Total 1350 ml Balance -400 ml 240 ml 1100 ml Intake Oral 100 ml 240 ml IV Total 1100 ml Packed Cells 800 ml Blood Product IV Normal Saline Flush 50 ml Output Urine Total 1350 ml # Voids 4 5 4 # Bowel Movements 1 1 0 Result Diagram: 09/04/17 0516 09/03/17 0603 Objective Remarks General: No acute distress. Sitting up in a chair. Heart: Regular rate and rhythm. No murmur. Lungs: Clear to auscultation bilaterally. No wheezes, rales, or rhonchi. Breathing is nonlabored. Abdomen: Soft, nontender, nondistended. Extremities: No lower extremity edema. Psych: Alert and oriented. Procedures 08/31/17 EGD 09/03/17 embolization of the gastroduodenal artery with coils and Gelfoam Urinary Catheter: No Vascular Central Line Catheter: No A/P Problem List: (1) Hypertension ICD Code: I10 - Essential (primary) hypertension (2) Hyperlipidemia ICD Code: E78.5 - Hyperlipidemia, unspecified (3) Hypothyroidism ICD Code: E03.9 - Hypothyroidism, unspecified (4) Hypotension ICD Code: I95.9 - Hypotension, unspecified (5) Acute blood loss anemia ICD Code: D62 - Acute posthemorrhagic anemia (6) Upper GI bleed ICD Code: K92.2 - Gastrointestinal hemorrhage, unspecified Status: Acute Assessment and Plan 1. Acute upper GI bleed: H&H remained stable overnight following interventional radiology procedure. Patient has received 4 units PRBCs during this hospitalization. Appreciate gastroenterology recommendations. Status post EGD. Multiple ulcers found. Continue PPI. Aspirin on hold. Monitor H/H. 2. Hypotension: Patient has history of hypertension. Lisinopril on hold secondary to low blood pressure. 3. Hyperlipidemia: Statin on hold. 4. Hypothyroidism: Continue Synthroid. 5. DVT prophylaxis: HARINDER Acevedo. Avoid chemical prophylaxis secondary to active GI bleed. Discharge Planning Pending further clinical improvement. Plan to keep patient in ICU today. Enrique Nelson MD Sep 04, 2017 09:14
--- NOTE | 2017-09-04 10:10 | HHI.GIFU ---
GI Follow-up Note Consult Follow-up Subjective: Patient sitting in chair comfortably. No BM or over GI bleeding. Objective: PHYSICAL EXAMINATION: Vitals signs stable No fever HEENT: no jaundice. Throat is clear. NECK: Neck is supple, no JVD, no lymphadenopathy. CHEST: Chest is clear to auscultation and percussion. CARDIAC: Regular rate and rhythm with no murmur gallop or rubs. ABDOMEN: Soft, nondistended, nontender; no hepatosplenomegaly; bowel sounds are present in all four quadrants. TIER TRUCK DRIVER: No focal deficits; alert and oriented times three. Available Data (labs, X- Rays, Procedues) : Hgb 8.3-stable. arteriogram--no bleeding. coils placed in GD artery ASSESSMENT/PLAN: 1. Melena-no bleeding today 2. Anemia-stable 3. Gastric ulcers with clean bases-bx pending 4. Bleeding DU (distal bulb)-clipped x3 but this just slowed the bleeding. Area was then cauterized and bleeding stopped. no bleeding on yesterdays arteriogram PLAN: 1. Cont PPI 2. advance diet 3. Transfuse as needed. It was a pleasure seeing DieterDorota Cantu. Thank you for this consult. Entered by: Jonathon Ortez MD Sep 04, 2017 10:10
--- NOTE | 2017-09-04 10:40 | RADRPT ---
EXAM DATE/TIME: 09/03/2017 15:03 [facility] COMPARISON: No previous studies available for comparison. INDICATIONS : History of upper GI hemorrhage and multiple duodenal ulcers status post endoscopic intervention with persistent upper GI bleeding. Angiography with prophylactic GDA embolization has been requested. MEDICAL HISTORY : HTN Hyperlipidemia Hypothyroidism Hypotension Acute blood loss anemia Upper GI bleed SURGICAL HISTORY : Hysterectomy Bladder life ENCOUNTER: Initial ACUITY: 3 days PAIN SCORE: 0/10 FLUORO TIME: 10.3 minutes IMAGE SERIES: 4 ACCESS SITE: Left Radial artery SEDATION TIME: 45 minutes CONTRAST: 1.) 100 cc Visipaque (iodixanol) MEDICATION(S): 1.) 1 mg midazolam (Versed) IV 2.) 50 mcg fentanyl (Sublimaze) IV DEVICE(S): 1.) gastroduodenal artery [id number] embolic coil(s) 2.) gastroduodenal artery [id number] embolic coil(s) 3.) gastroduodenal artery Gelfoam 4.) gastroduodenal artery [id number] embolic coil(s) 5.) Left radial artery radial band PROCEDURE : 1. Ultrasound-guided puncture of the radial artery. 2. Conscious sedation with continuous EKG and Oximetry monitoring. 3. Selective catheter placement in the celiac artery with selective angiography 4. Coil and Gelfoam embolization of the gastroduodenal artery 5. Selective catheter placement in the SMA was selected angiography The risks, benefits and alternatives to the procedure were explained and verbal and written consent w as obtained. The site was prepped in sterile fashion. Full sterile technique was used, including cap, mask, steri le gloves and gown and a large sterile sheet. Hand hygiene and 2% chlorhexidine and/or betadine/alco hol prep was utilized per protocol for cutaneous antisepsis. Sterile gel and sterile probe cover wer e utilized for ultrasound guidance. The skin and subcutaneous tissues were infiltrated with local an esthetic solution. A Barbeau test was performed prior to preparing the patient for the procedure which demonstrated adeq uate collateral circulation. With ultrasound and fluoroscopic guidance the prescribed radial was punc tured and a slim 4 Kittitian vascular sheath was placed. 4 Kittitian catheter was then used to select the c eliac artery and angiography was performed. This demonstrated standard celiac anatomy without evidenc e of contrast extravasation particularly from GDA branches. Endoscopically placed clips are noted whi ch correlate to the proximal to mid proper gastroduodenal artery. The GDA was embolized with two 6 x 20 mm there are coils and small bowel Gelfoam. Followup angiography demonstrated stasis of flow in th e GDA. Catheter was then repositioned in the SMA and angiography was performed in multiple obliquitie s. This did not demonstrate any active extravasation. The puncture site was closed with compression device and hemostasis was obtained. The patient tolerat ed the procedure well and there were no complications. Conscious sedation was performed with the prescribed dosages and duration as above in the presence of an independent trained radiology nurse to assist in the monitoring of the patient. EKG and oximetry remained stable throughout the procedure. CONCLUSION: 1. Standard celiac and SMA anatomy without evidence for active hemorrhage at this time. 2. Technically successful prophylactic embolization of the gastroduodenal artery. Patricio Ness MD on September 04, 2017 at 10:18 Board Certified Radiologist. This report was verified electronically.
[2017-09-04 13:41] LABS: HEMATOCRIT 22.6 % (35.0-46.0); HEMOGLOBIN 7.8 GM/DL (11.6-15.3)
[2017-09-04 17:47] LABS: HEMATOCRIT 22.1 % (35.0-46.0); HEMOGLOBIN 7.8 GM/DL (11.6-15.3)
[2017-09-04 23:44] LABS: HEMOGLOBIN 7.7 GM/DL (11.6-15.3)
[2017-09-05] VITALS (10 sets, daily range): BP systolic 116–139; BP diastolic 56–73; PULSE 68–88; RESP 14–22; TEMP 97.9–98.2; O2SAT 95–98
[2017-09-05] MEDS: NS + KCL 20 MEQ INJ 1,000 ML IV SCH (00:23)
[2017-09-05] MEDS: PANTOPRAZOLE INJ 80 MG in SODIUM CHLORIDE 0.9% INJ 100 ML IV SCH ×2 (00:24→07:58)
[2017-09-05] MEDS: SUCRALFATE 1 GM TAB PO SCH ×5 (00:25→22:42)
[2017-09-05] MEDS: LEVOTHYROXINE SODIUM 25 MCG TAB PO SCH (05:06)
[2017-09-05 05:20] LABS: HEMATOCRIT 22.7 % (35.0-46.0); HEMOGLOBIN 7.7 GM/DL (11.6-15.3)
[2017-09-05] MEDS: SODIUM CHLORIDE 0.9% FLUSH 10 ML FLUSH IV FLUSH SCH ×2 (07:58→20:29)
[2017-09-05] MEDS: PANTOPRAZOLE SOD 40 MG DELAYED RELEASE TAB PO SCH ×2 (09:19→20:29)
--- NOTE | 2017-09-05 10:28 | HHI.GIFU ---
GI Follow-up Note Consult Follow-up Subjective: Patient Doing well. No further GI bleeding. No abdominal pain. Tolerating liquid diet Objective: PHYSICAL EXAMINATION: Vitals signs stable No fever H NECK: no lymphadenopathy. CHEST: Chest is clear to auscultation and percussion. CARDIAC: Regular rate and rhythm with no murmur gallop or rubs. ABDOMEN: Soft, nondistended, nontender; no hepatosplenomegaly; bowel sounds are present in all four quadrants. EXTREMITIES: No clubbing, cyanosis, or edema. SKIN: no jaundice. VICE PRESIDENT INDUSTRIAL RELATIONS: alert and oriented times three. Available Data (labs, X- Rays, Procedues) : hemoglobin stable at 7.7 ASSESSMENT/PLAN: 1. Melena- resolved 2. Anemia-stable 3. Gastric ulcers with clean bases-bx pending 4. Bleeding DU (distal bulb)-clipped x3 but this just slowed the bleeding. Area was then cauterized and bleeding stopped. no bleeding on arteriogram PLAN: 1. Cont PPI- change to p.o. 2. continue Carafate 3. advance diet. If she is tolerating her advance diet and no further bleeding and hemoglobin stabilizes she may be discharged 4. follow-up upper endoscopy in [address] Lujan will see patient tomorrow It was a pleasure seeing Dorota Garcias. Thank you for this consult. Entered by: Jonathon Ortez MD Sep 05, 2017 10:28
--- NOTE | 2017-09-05 13:12 | HHI.PR ---
Subjective Remarks The patient was resting comfortably in bed. Her family was at the bedside and her questions were answered. The patient has continued to note tarry, black bowel movements. She has been tolerating a diet. She has been ambulating without dizziness. Discussed with nurses. Objective Vitals Vital Signs Date Time Temp Pulse Resp B/P (MAP) Pulse Ox O2 Delivery O2 Flow Rate FiO2 09/05/17 12:00 98.2 85 22 116/56 (76) 98 09/05/17 12:00 82 09/05/17 10:00 88 09/05/17 09:09 98 21 09/05/17 08:00 76 09/05/17 08:00 98.2 76 22 139/72 (94) 98 09/05/17 07:00 98 Room Air 09/05/17 06:00 78 09/05/17 04:00 74 09/05/17 04:00 97.9 74 14 118/65 (82) 96 09/05/17 02:00 68 09/05/17 00:00 68 09/05/17 00:00 98.0 71 15 137/73 (94) 95 09/04/17 22:00 68 09/04/17 20:00 68 09/04/17 20:00 98 Room Air 09/04/17 20:00 98.4 79 16 145/70 (95) 97 09/04/17 18:00 78 09/04/17 16:00 98.5 82 30 159/77 (104) 100 09/04/17 16:00 76 09/04/17 14:00 70 I/O 09/04/17 09/04/17 09/04/17 09/05/17 09/05/17 09/05/17 07:00 15:00 23:00 07:00 15:00 23:00 Intake Total 1100 ml 1100 ml 480 ml 1100 ml 100 ml Balance 1100 ml 1100 ml 480 ml 1100 ml 100 ml Intake Oral 480 ml IV Total 1100 ml 1100 ml 1100 ml 100 ml # Voids 4 10 5 # Bowel Movements 0 0 0 Result Diagram: 09/05/17 0450 09/03/17 0603 Imaging Last Impressions Abdomen Arteriogram 09/03/17 0000 Signed Impressions: Service Date/Time: Sunday, September 03, 2017 15:03 - CONCLUSION: 1. Standard celiac and SMA anatomy without evidence for active hemorrhage at this time. 2. Technically successful prophylactic embolization of the gastroduodenal artery. Patricio Ness MD Objective Remarks General: No acute distress. HEENT: NC, AT. Heart: Regular rate and rhythm. No murmur noted. Lungs: Clear to auscultation bilaterally. No wheezes, rales, or rhonchi. Breathing is nonlabored. Abdomen: Soft, nontender, nondistended. Extremities: No lower extremity edema. Neuro: Alert and oriented. Psych: Mood and affect appropriate. Procedures 08/31/17 EGD 09/03/17 embolization of the gastroduodenal artery with coils and Gelfoam Medications and IVs Current Medications Medications (Trade) Dose Ordered Sig/Dawit Route Start Time Stop Time Status Last Admin (NS Flush) 2 ml UNSCH PRN IV FLUSH 08/31/17 06:00 (NS Flush) 2 ml BID IV FLUSH 08/31/17 09:00 09/05/17 07:58 (Zofran Inj) 4 mg Q6H PRN IV PUSH 08/31/17 06:00 (Synthroid) 25 mcg DAILY@0600 PO 08/31/17 09:01 09/05/17 05:06 (Tylenol) 500 mg Q6H PRN PO 09/01/17 10:15 09/05/17 13:24 (Carafate) 1 gm ACHS PO 09/02/17 17:00 09/05/17 12:03 (Atropine Inj) 0.5 mg Q5M PRN IV PUSH 09/02/17 22:30 (Protonix) 40 mg BID PO 09/05/17 09:14 09/05/17 09:19 (Colace) 100 mg BID PO 09/05/17 21:00 A/P Problem List: (1) Hypertension ICD Code: I10 - Essential (primary) hypertension (2) Hyperlipidemia ICD Code: E78.5 - Hyperlipidemia, unspecified (3) Hypothyroidism ICD Code: E03.9 - Hypothyroidism, unspecified (4) Hypotension ICD Code: I95.9 - Hypotension, unspecified (5) Acute blood loss anemia ICD Code: D62 - Acute posthemorrhagic anemia (6) Upper GI bleed ICD Code: K92.2 - Gastrointestinal hemorrhage, unspecified Status: Acute Assessment and Plan Acute upper GI bleed Patient has received 4 units PRBCs during this hospitalization. Appreciate gastroenterology recommendations. Status post EGD. Multiple ulcers found. IR performed prophylactic embolization of the gastroduodenal artery. - Continue PPI. - Aspirin on hold. - Monitor H/H. - follow up with GI. Hypotension Patient has history of hypertension. - Lisinopril on hold secondary to low blood pressure. Resume when clinically appropriate. Hypokalemia Seems stable. - repeat BMP in AM. DVT prophylaxis: HARINDER Acevedo. Avoid chemical prophylaxis secondary to GI bleed. Discharge Planning Hopefully d/c home in AM Duke Farooq DO Sep 05, 2017 13:11
[2017-09-05] MEDS: ACETAMINOPHEN 500 MG CPLT PO PRN ×2 (13:24→22:44)
[2017-09-05] MEDS: DOCUSATE SODIUM 100 MG CAP PO SCH (20:29)
[2017-09-05 21:14] LABS: HEMATOCRIT 21.2 % (35.0-46.0); HEMOGLOBIN 7.3 GM/DL (11.6-15.3)
[2017-09-06] VITALS: BP 122/58; PULSE 70; RESP 20; TEMP 98.4; O2SAT 96
[2017-09-06 04:00] VITALS: BP 128/67; PULSE 71; PULSE 72; RESP 20; TEMP 98; O2SAT 98
[2017-09-06] MEDS: LEVOTHYROXINE SODIUM 25 MCG TAB PO SCH (05:17)
[2017-09-06 07:17] LABS: BICARBONATE 26.3 MEQ/L (21.0-32.0); CREATININE 0.53 MG/DL (0.50-1.00); MAGNESIUM 2.3 MG/DL (1.5-2.5)
[2017-09-06 07:19] LABS: HEMATOCRIT 21.7 % (35.0-46.0); HEMOGLOBIN 7.6 GM/DL (11.6-15.3); MEAN CELL VOLUME 85.8 FL (80.0-100.0); MEAN CORPUSCULAR HEMOGLOBIN 29.8 PG (27.0-34.0); MEAN CORPUSCULAR HGB CONC 34.8 % (32.0-36.0); MEAN PLATELET VOLUME 9.5 FL (7.0-11.0); PLATELET COUNT 202 TH/MM3 (150-450); RED BLOOD COUNT 2.53 MIL/MM3 (4.00-5.30); WHITE BLOOD COUNT 6.5 TH/MM3 (4.0-11.0)
[2017-09-06 07:58] VITALS: BP 145/71; PULSE 66; RESP 18; TEMP 98.3; O2SAT 97
[2017-09-06 08:00] VITALS: PULSE 66
[2017-09-06] MEDS: PANTOPRAZOLE SOD 40 MG DELAYED RELEASE TAB PO SCH (08:28)
[2017-09-06] MEDS: SUCRALFATE 1 GM TAB PO SCH ×2 (08:29→11:04)
[2017-09-06] MEDS: DOCUSATE SODIUM 100 MG CAP PO SCH (08:29)
[2017-09-06] MEDS: SODIUM CHLORIDE 0.9% FLUSH 10 ML FLUSH IV FLUSH SCH (08:29)
[2017-09-06] MEDS ORDERED: POTASSIUM CHLORIDE 25 MEQ EFFERVESCENT TAB PO ONE (09:30)
--- NOTE | 2017-09-06 10:49 | HHI.GIFU ---
GI Follow-up Note Consult Follow-up Subjective: Patient laying in bed comfortably, no new complaints and states still dark but getting integrated logistics operations manager. at bedside. Feels well, no abd pain and jayjay reg diet this am. Hgb improved. Objective: PHYSICAL EXAMINATION: Vitals signs stable No fever ABDOMEN: Soft, nondistended, nontender EXTREMITIES: No edema. SKIN: Warm and dry. FLOW MATCH SOFA CUTTER: alert and oriented times three. Available Data (labs, X- Rays, Procedues) : Laboratory Tests Test 09/03/17 11:50 09/03/17 18:42 09/03/17 23:03 09/04/17 05:16 Hemoglobin 8.6 GM/DL (11.6-15.3) 8.3 GM/DL (11.6-15.3) 8.0 GM/DL (11.6-15.3) 8.3 GM/DL (11.6-15.3) Hematocrit 25.6 % (35.0-46.0) 24.2 % (35.0-46.0) 23.6 % (35.0-46.0) 24.4 % (35.0-46.0) Test 09/04/17 12:12 09/04/17 16:55 09/04/17 23:15 09/05/17 04:50 Hemoglobin 7.8 GM/DL (11.6-15.3) 7.8 GM/DL (11.6-15.3) 7.7 GM/DL (11.6-15.3) 7.7 GM/DL (11.6-15.3) Hematocrit 22.6 % (35.0-46.0) 22.1 % (35.0-46.0) 23.0 % (35.0-46.0) 22.7 % (35.0-46.0) Test 09/05/17 19:35 09/06/17 05:49 Hemoglobin 7.3 GM/DL (11.6-15.3) 7.6 GM/DL (11.6-15.3) Hematocrit 21.2 % (35.0-46.0) 21.7 % (35.0-46.0) Red Blood Count 2.53 MIL/MM3 (4.00-5.30) Calcium Level 8.0 MG/DL (8.5-10.1) Potassium Level 3.4 MEQ/L (3.5-5.1) ASSESSMENT/PLAN: 1. UGI bleed with and DU s/p clipping, cautery and embolization. Stable. Pt had been taking a lot of ASA. I advised her to avoid ASA and all NSAIDS. Acetaminophen ok. Stay on a daily PPI for at least 1 year. Would d/c on Carafate QID too for 4 weeks. Regular diet ok. Suggest check H&H early next week. Gastric bxs neg for H. Pylori. OK to discharge home. Will sign off. It was a pleasure seeing Dorota Garcias. Thank you for this consult. Entered by: Andrzej Gross MD Sep 06, 2017 10:49
[2017-09-06 11:31] VITALS: BP 131/70; PULSE 79; RESP 20; TEMP 98.1; O2SAT 95
[2017-09-06] MEDS ORDERED: PANT40TA3 PO ×2 (11:47→11:52)
[2017-09-06] MEDS ORDERED: CARA1TAB6 PO (11:47)
--- NOTE | 2017-09-06 11:52 | HHI.DCPOC ---
Discharge Care Plan Diagnosis: (1) Upper GI bleed (2) Acute blood loss anemia (3) Hypotension (4) Hypothyroidism Goals to Promote Your Health * To prevent worsening of your condition and complications * To maintain your health at the optimal level Directions to Meet Your Goals Take your medications as prescribed Follow your dietary instruction Follow activity as directed Keep your appointments as scheduled Take your immunizations and boosters as scheduled If your symptoms worsen call your PCP, if no PCP go to Urgent Care Center or Emergency Room Smoking is Dangerous to Your Health. Avoid second hand smoke Call the 24-hour hour crisis hotline for domestic abuse at Duke Farooq DO Sep 06, 2017 11:52
--- NOTE | 2017-09-06 11:59 | HHI.DS ---
Discharge Summary Admission Date Aug 31, 2017 at 05:57 Discharge Date: Sep 06, 2017 Admitting Diagnosis upper gi bleed (1) Hypertension ICD Code: I10 - Essential (primary) hypertension (2) Hyperlipidemia ICD Code: E78.5 - Hyperlipidemia, unspecified (3) Hypothyroidism ICD Code: E03.9 - Hypothyroidism, unspecified (4) Hypotension ICD Code: I95.9 - Hypotension, unspecified (5) Acute blood loss anemia ICD Code: D62 - Acute posthemorrhagic anemia Diagnosis: Principal (6) Upper GI bleed ICD Code: K92.2 - Gastrointestinal hemorrhage, unspecified Diagnosis: Principal Status: Acute (7) Hypokalemia ICD Code: E87.6 - Hypokalemia Procedures 08/31/17 EGD 09/03/17 embolization of the gastroduodenal artery with coils and Gelfoam Brief History - From Admission The patient is a 61-year-old female who states that she was in her normal state of health until yesterday evening when she began to feel lightheaded and dizzy. She felt that she was going to pass out. She denies syncope/loss of consciousness. She had 2 very dark stools overnight. She has history of GI bleed secondary to ulcer about 8 years ago. She takes a daily aspirin, but no other NSAIDs. Denies nausea or vomiting. CBC/BMP: 09/06/17 0549 09/06/17 0549 Significant Findings Laboratory Tests Test 09/03/17 18:42 09/03/17 23:03 09/04/17 05:16 09/04/17 12:12 Hemoglobin 8.3 GM/DL (11.6-15.3) 8.0 GM/DL (11.6-15.3) 8.3 GM/DL (11.6-15.3) 7.8 GM/DL (11.6-15.3) Hematocrit 24.2 % (35.0-46.0) 23.6 % (35.0-46.0) 24.4 % (35.0-46.0) 22.6 % (35.0-46.0) Test 09/04/17 16:55 09/04/17 23:15 09/05/17 04:50 09/05/17 19:35 Hemoglobin 7.8 GM/DL (11.6-15.3) 7.7 GM/DL (11.6-15.3) 7.7 GM/DL (11.6-15.3) 7.3 GM/DL (11.6-15.3) Hematocrit 22.1 % (35.0-46.0) 23.0 % (35.0-46.0) 22.7 % (35.0-46.0) 21.2 % (35.0-46.0) Test 09/06/17 05:49 Red Blood Count 2.53 MIL/MM3 (4.00-5.30) Hemoglobin 7.6 GM/DL (11.6-15.3) Hematocrit 21.7 % (35.0-46.0) Calcium Level 8.0 MG/DL (8.5-10.1) Potassium Level 3.4 MEQ/L (3.5-5.1) Imaging Last Impressions Abdomen Arteriogram 09/03/17 0000 Signed Impressions: Service Date/Time: Sunday, September 03, 2017 15:03 - CONCLUSION: 1. Standard celiac and SMA anatomy without evidence for active hemorrhage at this time. 2. Technically successful prophylactic embolization of the gastroduodenal artery. Patricio Ness MD PE at Discharge General: No acute distress. HEENT: NC, AT. Heart: Regular rate and rhythm. No murmur noted. Lungs: Clear to auscultation bilaterally. No wheezes, rales, or rhonchi. Breathing is nonlabored. Abdomen: Soft, nontender, nondistended. Extremities: No lower extremity edema. Neuro: Alert and oriented. Psych: Mood and affect appropriate. Pt update on day of discharge The patient was resting comfortably in bed. She was anxious to go home. She denied any abdominal pain. She has been ambulating well. Hospital Course Acute upper GI bleed The patient received 4 units PRBCs during this hospitalization. Gastroenterology was consulted. ASA was held. She received IVFs and was started on a PPI. Status post EGD. Multiple ulcers were found. IR was then consulted and performed prophylactic embolization of the gastroduodenal artery. The pt is H pylori negative. Her hemoglobin stabilized. She will continue a PPI. She will also be on Carafate. She will have a repeat CBC in 3-5 days and will follow up with GI as an outpt. Hypotension Resolved with above treatment. The pt will follow up with her PCP. She will have a repeat CBC in 3-5 days. Hypokalemia The pt received KCl supplements. She will have a repeat BMP in 3-5 days and will follow up with her PCP. Pt Condition on Discharge: Stable Discharge Disposition: Discharge Home Discharge Time: <= 30 minutes Discharge Instructions DIET: Follow Instructions for: As Tolerated, No Restrictions Activities you can perform: Regular-No Restrictions Follow up Referrals: Gastroenterology - 1 Week with Orlin Millan MD PCP Follow-up - 1 Week New Orders: BASIC METABOLIC PROF - 3-5 Days CBC NO DIFF - 3-5 Days New Medications: Pantoprazole (Pantoprazole) 40 Mg Tab 40 MG PO DAILY for Stomach, #30 TAB Sucralfate (Carafate) 1 Gram Tab 1 GM PO ACHS for Stomach for 30 Days, TAB Continued Medications: Atorvastatin (Lipitor) 10 Mg Tab 10 MG PO HS for Cholesterol Management, #30 TAB 0 Refills Levothyroxine (Synthroid) 25 Mcg Tab 25 MCG PO DAILY for Thyroid, #30 TAB 0 Refills Discontinued Medications: Aspirin (Aspirin) 325 Mg Tab 325 MG PO for Pain Management, TAB 0 Refills Duke Farooq DO Sep 06, 2017 11:59
== END 2017-09-06 13:30 | disposition home or self-care (01) | DRG 357 ==
LOC: NEPC 05:03 → NEDA 05:57 → N06B 06:37 → N03B 09-02 23:23
PROVIDERS: ADMIT Hospitalist; ATTEND Hospitalist
PROC: 0DB68ZX Excision of Stomach, Via Natural or Artificial Opening Endoscopic, Diagnostic (ICD-10-PCS; 2017-08-31)
PROC: 0W3P8ZZ Control Bleeding in Gastrointestinal Tract, Via Natural or Artificial Opening Endoscopic (ICD-10-PCS; 2017-08-31)
PROC: 30233N1 Transfusion of Nonautologous Red Blood Cells into Peripheral Vein, Percutaneous Approach (ICD-10-PCS; 2017-09-01)
PROC: 04L33DZ Occlusion of Hepatic Artery with Intraluminal Device, Percutaneous Approach (ICD-10-PCS; principal; 2017-09-03)
PROC: B4141ZZ Fluoroscopy of Superior Mesenteric Artery using Low Osmolar Contrast (ICD-10-PCS; 2017-09-03)
PROC: B41J1ZZ Fluoroscopy of Other Lower Arteries using Low Osmolar Contrast (ICD-10-PCS; 2017-09-03)
DX: K26.4 Chronic or unspecified duodenal ulcer with hemorrhage (principal); D62 Acute posthemorrhagic anemia; I95.9 Hypotension, unspecified; K25.9 Gastric ulcer, unspecified as acute or chronic, without hemorrhage or perforation; I10 Essential (primary) hypertension; R55 Syncope and collapse; K29.60 Other gastritis without bleeding; K57.30 Diverticulosis of large intestine without perforation or abscess without bleeding; E78.5 Hyperlipidemia, unspecified; E03.9 Hypothyroidism, unspecified; E87.6 Hypokalemia; R00.1 Bradycardia, unspecified; Z79.82 Long term (current) use of aspirin; Z90.710 Acquired absence of both cervix and uterus; Z87.11 Personal history of peptic ulcer disease
CPT/HCPCS: 36245; 36247; 36430; 37244; 75726; 75774; 76937; 80048; 80053; 82550; 82948; 83735; 84484; 85014; 85018; 85025; 85027; 85610; 85730; 86850; 86900; 86901; 86920; 88305; 88312; 93005; 99152; 99153; C1769; C1887; C1894; C9113; J1644; J2250; J2405; J3010; J3480; J7030; J7040; P9016; Q0163; Q9967